=== PATIENT | female | born 1985 | race Caucasian/White ===

== ENCOUNTER 2019-08-11 19:49 | Emergency (ER) | payer OTHER ==
[~2019-08-11] VITALS: Ht 165.1 cm; Wt 73.0 kg
[2019-08-11] MEDS ORDERED: LORAZEPAM 1MG TABLET PO ONE (20:30)
[2019-08-11 21:27] VITALS: BP 108/66
== END 2019-08-11 21:29 | disposition home or self-care (01) ==
LOC: ER 19:49
DX: F41.0 Panic disorder [episodic paroxysmal anxiety] (principal)
CPT/HCPCS: 99284